=== PATIENT | female | born 1980 | race Caucasian/White ===

== ENCOUNTER → 2017-06-11 | Outpatient (CLI) | payer OTHER ==
--- NOTE | 2017-06-11 20:05 | XR ---
EXAM TYPE: LUMBAR SPINE X RAY SERIES COMPARISON: NONE HISTORY: Back pain TECHNIQUE: 4 views are submitted. FINDINGS: Alignment is anatomic. The pedicles are intact. The transverse processes are intact. There is no s pondylolysis or spondylolisthesis. Facet arthropathy L5-S1 bilaterally. There is degenerative disc d isease at levels L2-S1 with most marked findings at L5-S1. Mild hypertrophic changes anteriorly. Dege nerative disc disease and hypertrophic changes thoracolumbar junction. IMPRESSION: 1. Multilevel degenerative disc disease with most marked findings at L5-S1..
== END | disposition home or self-care (01) ==
LOC: RADXRMAIN 15:44
PROVIDERS: ATTEND Family Medicine
DX: M51.37 Other intervertebral disc degeneration, lumbosacral region (principal)
CPT/HCPCS: 72110

== ENCOUNTER 2017-11-26 13:41 | Day surgery (SDC) | payer OTHER ==
[2017-11-20 16:07] VITALS: BMI 24.1
[~2017-11-26 13:41] MED LIST: SODIUM CHLORIDE 0.9% 1,000 ML IV SCH
[2017-11-26 14:13] VITALS: PULSE 70; RESP 20; TEMP 97.9
[2017-11-26] MEDS ORDERED: IV FLUID CONTINUATION 450 ML IV ONE (14:30)
[2017-11-26 16:02] VITALS: BP 110/70
--- NOTE | 2017-11-26 18:11 | P.PCN ---
Preoperative Diagnosis: Indication for the procedure Recurrent presyncope and syncope Twelve-lead ECG shows sinus rhythm normal MA narrow QRS no delta waves no epsilon waves normal ST segments Tilt table test per protocol Baseline blood pressure 1904 mmHg Baseline heart rate 100 beats a minute Patient's heart rate and blood pressure remained stable throughout the procedure no symptoms noted The only time she was disease when she was tilted upright but without any change in heart rate and blood pressure Impression Normal heart rate and blood pressure response to upright tilting Normal twelve-lead ECG
== END 2017-11-26 16:00 | disposition home or self-care (01) ==
LOC: CATHEP 13:41
PROVIDERS: ATTEND Internal Medicine Clinical Cardiac Electrophysiology
DX: R55 Syncope and collapse (principal); Z82.49 Family history of ischemic heart disease and other diseases of the circulatory system; F17.210 Nicotine dependence, cigarettes, uncomplicated; Z88.1 Allergy status to other antibiotic agents; Z88.0 Allergy status to penicillin; Z88.2 Allergy status to sulfonamides; Z79.899 Other long term (current) drug therapy
CPT/HCPCS: 81025; 93660

== ENCOUNTER → 2018-03-11 | Day surgery (SDC) | payer OTHER ==
[2018-03-08 12:26] VITALS: BMI 26.6
[~2018-03-11] MED LIST changes: +ADENOSINE 3 MG/ML 4 ML VIAL IVP ONE; +NITROGLYCERIN SL TABS 0.4 MG TAB SUBLINGUAL ONE
[2018-03-11 07:13] VITALS: RESP 18; TEMP 97.6
[2018-03-11 09:51] VITALS: BP 124/68; PULSE 96
--- NOTE | 2018-03-11 12:05 | P.PCN ---
Preoperative Diagnosis: Diagnosis Recurrent presyncope and syncope Patient has had these symptoms since her teenage years States that Adderall has not worsened the symptoms Elevated blood pressures in the last few days prior to her delivery, when she was Prodrome includes a feeling of rash, warm, feeling sick to the stomach,, cold sweats and palpitations sometimes Prior to loss of consciousness her heart is pounding Baseline twelve-lead ECG shows sinus mechanism normal OR narrow QRS normal ST segments no delta waves no epsilon waves normal QT interval Normal precordial ST segments Tilt table test with pharmacologic challenge Baseline heart rate 90 beats a minute Baseline blood pressure 119/64 mmHg. Patient lay supine for 10 minutes for Baseline measurements and thereafter tilt table test was performed with pharmacologic challenge with sublingual nitroglycerin, later 12 mg of IV adenosine, and then subsequently Isuprel Tilt table test with sublingual nitroglycerin challenge 0.4 mg administered in the supine position and after waiting for 5 minutes patient was tilted upright at 90-70 Heart rate increased 218 beats a minute she felt heart racing blood pressure remained stable No symptoms that are very typical of her clinical scenario She was laid supine administered 12 mg IV bolus adenosine rapid push. She experienced sinus tachycardia up to 126 beats a minute. No AV block noted and she was tilted upright thereafter. Heart rate remained in the 90s blood pressure remained stable but she felt hot and clammy felt her heart was racing and she was dizzy and although her heart rate was not as high as when she was in nitroglycerin her symptoms were far more prominent she also felt overheated. No loss of consciousness. This reproduced her prodromal symptoms She was laid supine Isuprel was started wide open and then at 1 juan c. On Isuprel heart rate increased 160 beats a minute and later settled down to between 120 to 1:30 beats a minute. At that point she was tilted upright once again. This time she felt worse she felt heart nauseous clammy and felt her heart was pounding similar to what she would feel just before passing out. The sinus tachycardia was followed by dips in his systolic and diastolic blood pressure on 2 occasions that reproduced his symptoms but without loss of consciousness she felt clammy heart and nauseous Although she exhibited a neurocardiogenic phenomena, no loss of consciousness was noted She was laid supine at the end of procedure Isuprel was stopped Impression Evidence of neurocardiogenic phenomena without loss of consciousness but reproduction of prodromal symptoms. Drop in blood pressure followed the increase in heart rate, while on Isuprel Impression Neurocardiogenic phenomena with reproduction of clinical symptoms Plan TSH with reflex T4 Cortisol level random sent because during the nitroglycerin phase when she was tilted upright she was actually hypertensive In the last few days prior to delivery, when she was , her blood pressure was also noted to be high Serum metanephrines Serum 5HIAA levels Detailed discussion with the patient My clinical diagnosis remains unchanged after this test. It would be prudent to either cut back on the dose of Adderall or stop it completely the patient says that she cannot tolerate the decrease in the dose and definitely cannot tolerate not taking Adderall Increase fluid and salt intake Strength training of the lower extremity muscles and core body emphasized and recommended After 6 weeks of doing so then add Florinef 0.1 mg by mouth daily Follow-up with Dr. Ramos in 12-14 weeks Other options for treatment include Low-dose nadolol because her heart rates up persistently in the 90s Her resting heart rates are 90s to low 100s even in supine position Inappropriate sinus tachycardia is not my primary diagnosis but lowering her heart rate may help and a trial of Corlanor / Ivabradine may be considered to see if this mitigates her symptoms to see if she has a combination of inappropriate sinus tachycardia that triggers recurrent symptoms of vasovagal phenomena and vasovagal syncope Anesthesia: none Condition: stable
== END | disposition home or self-care (01) ==
LOC: CATHEP 06:43
PROVIDERS: ATTEND Internal Medicine Clinical Cardiac Electrophysiology
DX: R55 Syncope and collapse (principal); Z79.899 Other long term (current) drug therapy; Z82.49 Family history of ischemic heart disease and other diseases of the circulatory system; Z72.0 Tobacco use; Z88.1 Allergy status to other antibiotic agents; Z88.0 Allergy status to penicillin; Z88.2 Allergy status to sulfonamides
CPT/HCPCS: 93660; 83835; 84443; 82533; 83497; J0153

== ENCOUNTER → 2018-05-10 | Outpatient (CLI) | payer OTHER ==
--- NOTE | 2018-05-10 19:04 | CT ---
EXAMINATION TYPE: CT abdomen pelvis wo/w con DATE OF EXAM: 05/10/2018 COMPARISON: None INDICATION: RUQ PAIN DLP: 1076.8 mGycm, Automated exposure control for dose reduction was used. CONTRAST: 100 mL of Isovue 300. Study performed with Oral Contrast TECHNIQUE: Axial images were obtained from above the diaphragm to the pubic rami in the axial plane a t 5 mm thick sections. Reconstructed images are reviewed on the computer in the coronal plane. FINDINGS: Limited CT sections are obtained the lung bases. The lung bases are clear. CT ABDOMEN: Liver: Normal Spleen: Normal Pancreas: Normal Adrenal glands: The adrenal glands are normal. Gallbladder: Normal Kidneys: No masses are evident. No hydronephrosis is present. No cysts are present. There is a 0.6 cm calcification in the inferior pole left kidney without evidence of obstruction. Delayed images w ere obtained through the kidneys which remain unremarkable. Aorta: Vascular calcification is within the aorta. Inferior vena cava: Normal. CT PELVIS: Loops of bowel within the abdomen and pelvis are normal. There are loops of bowel which are incom pletely distended or lack oral contrast limiting their evaluation. There is a large fecal bolus at th e level the rectum. Appendix: Normal as visualized. Urinary bladder: Normal. Genitourinary structures: Uterus and adnexa appear within normal limits. IUD is within the uterus. Osseous structures: No suspicious lytic or sclerotic lesions. IMPRESSIONS: 1. Nonobstructing inferior pole left renal stone measuring 0.6 cm. 2. Large fecal bolus at the level the rectum. 3. No suspicious findings to account for right upper quadrant pain
== END | disposition home or self-care (01) ==
LOC: RADCTMAIN 13:47
PROVIDERS: ATTEND Family Medicine
DX: N20.0 Calculus of kidney (principal); R10.11 Right upper quadrant pain
CPT/HCPCS: 74178; Q9967

== ENCOUNTER → 2020-04-20 | Outpatient (CLI) | payer OTHER | END | disposition home or self-care (01) | LOC: SLEEP 13:35 | PROVIDERS: ATTEND Internal Medicine Critical Care Medicine | DX: Z53.9 Procedure and treatment not carried out, unspecified reason (principal) ==

== ENCOUNTER → 2024-03-05 | Outpatient (CLI) | payer OTHER ==
[2024-03-05 19:34] LABS: Chol/HDL Ratio 4.52 Ratio; VLDL Calculation 15.88 mg/dL (5.00-40.00)
[2024-03-05 19:35] LABS: ALT 15 U/L (8-44); AST 14 U/L (13-35); Albumin 4.5 g/dL (3.8-4.9); Albumin/Globulin Ratio 1.88 Ratio (1.60-3.17); Alkaline Phosphatase 81 U/L (41-126); BUN/Creat Ratio 14.11 Ratio (12.00-20.00); Blood Urea Nitrogen 12.7 mg/dL (9.0-27.0); Calcium 9.8 mg/dL (8.7-10.3); Carbon Dioxide 25.6 mmol/L (21.6-31.8); Chloride 103 mmol/L (96-109); Globulin 2.4 g/dL (1.6-3.3); Glucose 94 mg/dL (70-110); LDL Cholesterol,Calculated 148.4 mg/dL (0.0-131.0); Potassium 4.3 mmol/L (3.5-5.5); Sodium 140 mmol/L (135-145); T4, Free (Free Thyroxine) 1.39 ng/dL (0.80-1.80); Total Bilirubin 0.5 mg/dL (0.3-1.2); Total Protein 6.9 g/dL (6.2-8.2)
[2024-03-05 19:48] LABS: Basophils # (A) 0.08 X 10*3/uL (0.00-0.10); Basophils % (A) 0.8 %; Eosinophils # (A) 0.34 X 10*3/uL (0.04-0.35); Eosinophils % (A) 3.3 %; HCT 47.1 % (37.2-46.3); HGB 15.5 g/dL (12.0-15.0); Lymphocytes # (A) 2.28 X 10*3/uL (0.90-5.00); Lymphocytes % (A) 22.3 %; MCH 31.6 pg (27.0-32.0); MCHC 32.9 g/dL (32.0-37.0); MCV 95.9 FL (80.0-97.0); Mean Platelet Volume 9.9 FL (9.5-12.2); Monocytes # (A) 0.69 X 10*3/uL (0.20-1.00); Monocytes % (A) 6.7 %; NRBC Per 100 WBC 0 X 10*3/uL (0.00-0.01); Neutrophils # (A) 6.81 X 10*3/uL (1.80-7.70); Neutrophils % (A) 66.5 %; Platelet Count 334 X 10*3/uL (140-440); RBC 4.91 X 10*6/uL (4.10-5.20); RDW 12.2 % (11.5-14.5); WBC 10.24 X 10*3/uL (4.50-10.00)
== END | disposition home or self-care (01) ==
LOC: LABWHC1 13:06
PROVIDERS: ATTEND Family Medicine
CPT/HCPCS: 36415; 80053; 80061; 82306; 82375; 82533; 83036; 84439; 84443; 85025

== ENCOUNTER 2024-08-25 20:03 | Emergency (ER) | payer OTHER ==
[2024-08-25 20:09] VITALS: TEMP 98
--- NOTE | 2024-08-25 20:37 | ED ---
General Adult HPI - General Chief complaint: Urogenital Stated complaint: vomiting, abd pain Time Seen by Provider: 08/25/24 20:10 Source: patient, RN notes reviewed Mode of arrival: ambulatory Limitations: no limitations - History of Present Illness Initial comments: 43-year-old female presenting to the emergency department for complaint of left- sided flank pain, nausea that started approximately 2 hours prior to arrival. States that the pain initially started on the left front of her abdomen radiating into her back. She states she feels like she has a kidney stone this feels similar as she has had kidney stones in the past. She denies fevers, dy suria, hematuria, increased urinary frequency or urgency, diarrhea. Patient states that a few weeks ago she was noticing dark discoloration of urine however this is resolved. Denies previous urological procedures. - Related Data Home Medications Medication Instructions Recorded Confirmed Ketorolac [Toradol] 10 mg PO Q6H PRN 08/27/24 08/27/24 Lisdexamfetamine Dimesylate 70 mg PO DAILY 08/27/24 08/27/24 [Vyvanse] Allergies Allergy/AdvReac Type Severity Reaction Status Date / Time metronidazole [From Flagyl] Allergy Rash/Hives Verified 08/27/24 09:25 Penicillins Allergy Rash/Hives Verified 08/27/24 09:25 Sulfa (Sulfonamide Allergy Rash/Hives Verified 08/27/24 09:25 Antibiotics) sulfamethoxazole Allergy Rash/Hives Verified 08/27/24 09:25 [From Bactrim] trimethoprim [From Bactrim] Allergy Rash/Hives Verified 08/27/24 09:25 Review of Systems ROS Statement: Those systems with pertinent positive or pertinent negative responses have been documented in the HPI. ROS Other: All systems not noted in ROS Statement are negative. Past Medical History Past Medical History: No Reported History Additional Past Medical History / Comment(s): SYNCOPE, SEE DR VAUGHAN'S CARDIAC HISTORY AND PHYSICAL, History of Any Multi-Drug Resistant Organisms: None Reported Past Surgical History: Orthopedic Surgery Additional Past Surgical History / Comment(s): RIGHT ELBOW SURGERY, TILT TABLE Past Anesthesia/Blood Transfusion Reactions: Previous Problems w/ Anesthesia Additional Past Anesthesia/Blood Transfusion Reaction / Comment(s): " VERY LOW HEART RATE" DID NOT STAY OVER NIGHT NO ADMISSION Past Psychological History: ADD/ADHD, Anxiety Smoking Status: Current every day smoker Past Alcohol Use History: Occasional Past Drug Use History: None Reported - Past Family History Mother Family Medical History: No Reported History General Exam Limitations: no limitations General appearance: alert, in no apparent distress ENT exam: Present: normal exam, mucous membranes moist Respiratory exam: Present: normal lung sounds bilaterally. Absent: respiratory distress, wheezes, rales, rhonchi, stridor Cardiovascular Exam: Present: regular rate, normal rhythm, normal heart sounds. Absent: systolic murmur, diastolic murmur, rubs, gallop, clicks GI/Abdominal exam: Present: soft, tenderness (left lower), normal bowel sounds. Absent: distended, guarding, rebound, rigid Extremities exam: Present: normal inspection, full ROM, normal capillary refill. Absent: tenderness, pedal edema, joint swelling, calf tenderness Back exam: Present: tenderness, CVA tenderness (L). Absent: CVA tenderness (R) Course Vital Signs 08/25/24 08/25/24 08/25/24 20:05 20:53 23:27 Temperature 98.0 F Pulse Rate 69 70 79 Respiratory 17 18 18 Rate Blood Pressure 135/81 147/90 145/85 O2 Sat by Pulse 100 94 L 99 Oximetry Medical Decision Making - Medical Decision Making Was pt. sent in by a medical professional or institution ([facility]ucker, [employer], urgent care, hospital, or retirement...) When possible be specific @ -No Did you speak to anyone other than the patient for history (EMS, parent, family, police, friend...)? What history was obtained from this source @ -No Did you review nursing and triage notes (agree or disagree)? Why? @ -I reviewed and agree with nursing and triage notes Were old charts reviewed (outside hosp., previous admission, EMS record, old EKG, old radiological studies, urgent care reports/EKG's, retirement records)? Report findings @ -No old charts were reviewed Differential Diagnosis (chest pain, altered mental status, abdominal pain women, abdominal pain men, vaginal bleeding, weakness, fever, dyspnea, syncope, headache, dizziness, GI bleed, back pain, seizure, CVA, palpatations, mental health, musculoskeletal)? @ -Differential Abdominal Pain Women: Appendicitis, Cholecystitis, diverticulosis, ischemic bowel, pancreatitis, hepatitis, UTI, gastroenteritis, AAA, incarcerated hernia, bowel obstruction, constipation, inflammatory bowel, hepatitis, peptic ulcer disease, splenic infarction, perforated viscus, vulvitis, ovarian torsion, PID, kidney stone, placenta abruption, this is not meant to be an all-inclusive list EKG interpreted by me (3pts min.). @ -None X-rays interpreted by me (1pt min.). @ -None done CT interpreted by me (1pt min.). @ -CT of the abdomen pelvis without contrast reveals a mild left hydronephrosis and obstructing 10 x 5 mm thickness at ureteropelvic junction U/S interpreted by me (1pt. min.). @ -None done What testing was considered but not performed or refused? (CT, X-rays, U/S, labs)? Why? @ -None What meds were considered but not given or refused? Why? @ -None Did you discuss the management of the patient with other professionals (professionals i.e. , PA, [employer]IAN, lab, RT, psych nurse, long term care social worker, gizzard puller, teacher, vessel traffic officer, case management rn)? Give summary @ -Spoke with on-call urologist, Dr. Pollard, was recommended that if the patient's pain is well-controlled she is able to be discharged with stable condition with close follow-up tomorrow outpatient. Was smoking cessation discussed for >3mins.? @ -No Was critical care preformed (if so, how long)? @ -No Were there social determinants of health that impacted care today? How? (Homelessness, low income, unemployed, alcoholism, drug addiction, transportation, low edu. Level, literacy, decrease access to med. care, detention, rehab)? @ -No Was there de-escalation of care discussed even if they declined (Discuss DNR or withdrawal of care, Hospice)? DNR status @ -No What co-morbidities impacted this encounter? (DM, HTN, Smoking, COPD, CAD, Cancer, CVA, ARF, Chemo, Hep., AIDS, mental health diagnosis, sleep apnea, morbid obesity)? @ -None Was patient admitted / discharged? Hospital course, mention meds given and route, prescriptions, significant lab abnormalities, going to OR and other pertinent info. @ -Discharge. 43-year-old female presents emergency department with left flank pain. Patient's pain is reproducible on examination. She is provided with Dilaudid and Toradol in addition to Zofran. Laboratory testing is unremarkable. Urinalysis reveals white cells, moderate blood with minor sinus rates likely contamination. CT abdomen pelvis reveals a mild left hydronephrosis with obstructing 10 x 5 mm thickness at UPJ. Spoke with on-call urologist who states that if patient's pain is well-controlled she is able to follow-up outpatient. On evaluation patient that she is feeling well. She is provided with starter pack of Tylenol 3 and provided with urology follow-up. Return parameters discussed. Case discussed with Dr. bess Undiagnosed new problem with uncertain prognosis? @ -No Drug Therapy requiring intensive monitoring for toxicity (Heparin, Nitro, Insulin, Cardizem)? @ -No Were any procedures done? @ -No Diagnosis/symptom? @ -kidney stone Acute, or Chronic, or Acute on Chronic? @ -acute Uncomplicated (without systemic symptoms) or Complicated (systemic symptoms)? @ -uncomplicated Side effects of treatment? @ -No Exacerbation, Progression, or Severe Exacerbation? @ -No Poses a threat to life or bodily function? How? (Chest pain, USA, NM, pneumonia, PE, COPD, DKA, ARF, appy, cholecystitis, CVA, Diverticulitis, Homicidal, Suicidal, threat to staff... and all critical care pts) @ -No - Lab Data Result diagrams: 08/25/24 20:39 08/25/24 20:39 Lab Results 08/25/24 08/25/24 08/25/24 Range/Units 20:39 20:39 21:52 WBC 10.04 H (4.50-10.00) 10*3/uL RBC 4.65 (4.10-5.20) 10*6/uL Hgb 15.0 (12.0-15.0) g/dL Hct 43.2 (37.2-46.3) % MCV 92.9 (80.0-97.0) fL MCH 32.3 H (27.0-32.0) pg MCHC 34.7 (32.0-37.0) g/dL Plt Count 295 (140-440) 10*3/uL MPV 9.6 (9.5-12.2) fL Immature Gran % (Auto) 0.3 % Neutrophils % 70.9 % Lymphocytes % 20.0 % Monocytes % 5.3 % Eosinophils % 2.7 % Basophils % 0.8 % Immature Gran # 0.03 (0.00-0.04) 10*3/uL Neutrophils # 7.12 (1.80-7.70) 10*3/uL Lymphocytes # 2.01 (0.90-5.00) 10*3/uL Monocytes # 0.53 (0.20-1.00) 10*3/uL Eosinophils # 0.27 (0.04-0.35) 10*3/uL Basophils # 0.08 (0.00-0.10) 10*3/uL Sodium 135 L (137-145) mmol/L Potassium 3.7 (3.5-5.1) mmol/L Chloride 100 (98-107) mmol/L Carbon Dioxide 27 (22-30) mmol/L Anion Gap 8 mmol/L BUN 10 (7-17) mg/dL Creatinine 0.65 (0.52-1.04) mg/dL Est GFR (CKD-EPI)AfAm >90 (>60 ml/min/1.73 sqM) Est GFR (CKD-EPI)NonAf >90 (>60 ml/min/1.73 sqM) Glucose 99 (74-99) mg/dL Calcium 10.0 (8.4-10.2) mg/dL Total Bilirubin 0.7 (0.2-1.3) mg/dL AST 18 (14-36) U/L ALT 16 (4-34) U/L Alkaline Phosphatase 86 (38-126) U/L Total Protein 6.9 (6.3-8.2) g/dL Albumin 4.3 (3.5-5.0) g/dL Urine Color Yellow Urine Appearance Cloudy H (Clear) Urine pH 6.0 (5.0-8.0) Ur Specific Craig 1.021 (1.001-1.035) Urine Protein Trace H (Negative) Urine Glucose (UA) Negative (Negative) Urine Ketones Trace H (Negative) Urine Blood Moderate H (Negative) Urine Nitrite Negative (Negative) Urine Bilirubin Negative (Negative) Urine Urobilinogen <2.0 (<2.0) mg/dL Ur Leukocyte Esterase Moderate H (Negative) Urine RBC 114 H (0-5) /hpf Urine WBC 12 H (0-5) /hpf Ur Squamous Epith Cells 12 H (0-4) /hpf Urine Bacteria Moderate H (None) /hpf Urine Mucus Many H (None) /hpf Disposition Clinical Impression: Nephrolithiasis Disposition: HOME SELF-CARE Condition: Stable Instructions (If sedation given, give patient instructions): Kidney Stones (ED) Additional Instructions: Please return to the Emergency Department if symptoms worsen or any other concerns. Follow-up with provided urology referral tomorrow for further evaluation. Is patient prescribed a controlled substance at d/c from ED?: No Referrals: None,Stated [Primary Care Provider] - 1-2 days Dexter Pollard MD [STAFF PHYSICIAN] - 1-2 days Time of Disposition: 22:45
[2024-08-25] MEDS: ONDANSETRON 4 MG/2 ML VIAL IVP STA (20:47)
[2024-08-25] MEDS: HYDROmorphone 1 MG/ML 1 ML SYRINGE IVP STA ×2 (20:48→23:10)
[2024-08-25] MEDS: KETOROLAC 15 MG/ML 1 ML VIAL IVP STA (20:48)
[2024-08-25] MEDS: SODIUM CHLORIDE 0.9% 1,000 ML IV STA (20:50)
[2024-08-25 20:51] LABS: Basophils # (A) 0.08 10*3/uL (0.00-0.10); Basophils % (A) 0.8 %; Eosinophils # (A) 0.27 10*3/uL (0.04-0.35); Eosinophils % (A) 2.7 %; HCT 43.2 % (37.2-46.3); Lymphocytes # (A) 2.01 10*3/uL (0.90-5.00); MCH 32.3 pg (27.0-32.0); MCHC 34.7 g/dL (32.0-37.0); MCV 92.9 fL (80.0-97.0); Mean Platelet Volume 9.6 fL (9.5-12.2); Monocytes # (A) 0.53 10*3/uL (0.20-1.00); Monocytes % (A) 5.3 %; Neutrophils # (A) 7.12 10*3/uL (1.80-7.70); Neutrophils % (A) 70.9 %; Platelet Count 295 10*3/uL (140-440); RBC 4.65 10*6/uL (4.10-5.20); RDW 12.7 % (11.5-14.5); WBC 10.04 10*3/uL (4.50-10.00)
[2024-08-25 20:53] LABS: ALT 16 U/L (4-34); AST 18 U/L (14-36); African American GFR (CKD) >90 (>60 ml/min/1.73 sqM); Albumin 4.3 g/dL (3.5-5.0); Alkaline Phosphatase 86 U/L (38-126); Anion Gap 8 mmol/L; Blood Urea Nitrogen 10 mg/dL (7-17); Carbon Dioxide 27 mmol/L (22-30); Chloride 100 mmol/L (98-107); Glucose 99 mg/dL (74-99); Non-African American GFR(CKD) >90 (>60 ml/min/1.73 sqM); Potassium 3.7 mmol/L (3.5-5.1); Sodium 135 mmol/L (137-145); Total Bilirubin 0.7 mg/dL (0.2-1.3); Total Protein 6.9 g/dL (6.3-8.2)
[2024-08-25 20:54] VITALS: RESP 18
--- NOTE | 2024-08-25 21:39 | CT ---
EXAMINATION TYPE: CT abdomen pelvis wo con DATE OF EXAM: 08/25/2024 9:03 PM COMPARISON: CT abdomen pelvis most recent from 02/01/2023 CLINICAL INDICATION: Female, 43 years old with history of L flank/ab pain, hx kidney stones; L flank/ ab pain, hx kidney stones TECHNIQUE: Axial CT abdomen pelvis wo con;Sagittal and coronal reformats were created on a separate workstation. Contrast used: mL of , (none if empty) Oral contrast used: without Oral Contrast (none if empty) CT DLP: 635.7 mGycm, Automated exposure control for dose reduction was used. FINDINGS: LOWER CHEST: Unremarkable ABDOMEN LIVER: Unremarkable GALLBLADDER AND BILE DUCTS: Unremarkable. PANCREAS: Unremarkable. SPLEEN: Unremarkable. ADRENAL GLANDS: Unremarkable. KIDNEYS AND URETERS: Mild left hydronephrosis and obstructing 10 x 5 mm thickness at the ureteropelvi c junction. No additional left artery. No right renal calculi. No right renal hydronephrosis. PELVIS BLADDER: No evidence for wall thickening or mass given limitations of exam. REPRODUCTIVE: Intrauterine device seen within the endometrium. Left ovarian dominant follicle measuri ng up to 29 mm. ABDOMEN & PELVIS STOMACH AND BOWEL: No evidence of bowel obstruction. The appendix is normal. PERITONEUM/RETROPERITONEUM: No evidence of pneumoperitoneum or free fluid. VASCULATURE: No evidence of aortic aneurysm. MUSCULOSKELETAL: No acute osseous abnormalities. Moderate disc degeneration changes are present throu ghout the thoracolumbar spine. Large osteophytes posterior to T12-L1 with severe spinal canal stenosi s. LYMPH NODES: No gross evidence for lymphadenopathy. SOFT TISSUE/ABDOMINAL WALL: Unremarkable IMPRESSION: 1. Mild left hydronephrosis and obstructing 10 x 5 mm thickness at the ureteropelvic junction. 2. IUD in appropriate position. 3. Large osteophytes posterior to T12-L1 with severe spinal canal stenosis. Findings similar to 02/01. 4. Dominant left ovarian follicle measuring up to 29 mm. Similar to prior 02/01/2023 [facility], , 08/25/2024 9:36 PM
[2024-08-25 22:07] LABS: Appearance,Urine Cloudy (Clear); Bacteria,Urine Moderate /hpf; Bilirubin,Urine Negative (Negative); Blood,Urine Moderate (Negative); Color,Urine Yellow; Glucose,Urine (UA) Negative (Negative); Ketones,Urine Trace (Negative); Leukocyte Esterase,Urine Moderate (Negative); Mucus,Urine Many /hpf; Nitrite,Urine Negative (Negative); Protein,Urine Trace (Negative); RBC,Urine 114 /hpf (0-5); Specific Gravity,Urine 1.021 (1.001-1.035); Squamous Epithelial Cell,Urine 12 /hpf (0-4); Urobilinogen,Urine <2.0 mg/dL (<2.0); WBC,Urine 12 /hpf (0-5)
[2024-08-25] MEDS: ONDANSETRON 4 MG ODT STARTER PACK 2 TAB BTL PO STA (23:09)
[2024-08-25] MEDS: ACET/COD 300 MG/30 MG STARTER PACK 6 TAB BTL PO STA (23:09)
[2024-08-25 23:28] VITALS: BP 145/85; PULSE 79
--- NOTE | 2024-08-26 01:00 | XR ---
EXAM: XR Abdomen, 1 View CLINICAL HISTORY: XR Reason: kidney stone TECHNIQUE: Frontal supine view of the abdomen/pelvis. COMPARISON: CT scan from February 01, 2023 FINDINGS: Gastrointestinal tract: Unremarkable. No dilated bowel loops identified. Bones/joints: There is a smooth oval 9 mm calcific density projecting over the left transverse process of L5. The uterus is seen left lower pole kidney stone is no longer visible within the kidney. Mild degenerative changes throughout the lumbar spine. No acute fracture. IMPRESSION: There is a smooth oval 9 mm calcific density projecting over the left transverse process of L5. Consider mid left ureteral calculus.
== END 2024-08-25 23:28 | disposition home or self-care (01) ==
LOC: EC 20:03
DX: N13.2 Hydronephrosis with renal and ureteral calculous obstruction (principal); F17.200 Nicotine dependence, unspecified, uncomplicated; Z88.0 Allergy status to penicillin; Z88.1 Allergy status to other antibiotic agents; Z88.2 Allergy status to sulfonamides
CPT/HCPCS: 36415; 80053; 85025; 81001; 74018; 74176; 99284; 96374; 96375 ×2; 96376; 96361; J2405; J1171; J1885; S0119

== ENCOUNTER 2024-08-26 22:15 | Emergency (ER) | payer OTHER ==
--- NOTE | 2024-08-26 23:05 | ED ---
Back Pain HPI - General Chief Complaint: Back Pain/Injury Stated Complaint: Abd/Back Pain/NVD Time Seen by Provider: 08/26/24 22:31 Source: patient, RN notes reviewed Limitations: no limitations - History of Present Illness MD Complaint: back pain Onset/Timin -: days(s) Radiation: groin, flank Severity scale (1-10): 8 Quality: stabbing Consistency: intermittent - Related Data Home Medications Medication Instructions Recorded Confirmed Dextroamphetamine/Amphetamine 60 mg PO BID 03/09/16 03/11/18 [Adderall] Allergies Allergy/AdvReac Type Severity Reaction Status Date / Time metronidazole [From Flagyl] Allergy Rash/Hives Verified 08/26/24 22:19 Penicillins Allergy Rash/Hives Verified 08/26/24 22:19 Sulfa (Sulfonamide Allergy Rash/Hives Verified 08/26/24 22:19 Antibiotics) sulfamethoxazole Allergy Rash/Hives Verified 08/26/24 22:19 [From Bactrim] trimethoprim [From Bactrim] Allergy Rash/Hives Verified 08/26/24 22:19 Review of Systems ROS Statement: Those systems with pertinent positive or pertinent negative responses have been documented in the HPI. ROS Other: All systems not noted in ROS Statement are negative. Past Medical History Past Medical History: No Reported History Additional Past Medical History / Comment(s): SYNCOPE, SEE DR VAUGHAN'S CARDIAC HISTORY AND PHYSICAL, History of Any Multi-Drug Resistant Organisms: None Reported Past Surgical History: Orthopedic Surgery Additional Past Surgical History / Comment(s): RIGHT ELBOW SURGERY, TILT TABLE Past Anesthesia/Blood Transfusion Reactions: Previous Problems w/ Anesthesia Additional Past Anesthesia/Blood Transfusion Reaction / Comment(s): " VERY LOW HEART RATE" DID NOT STAY OVER NIGHT NO ADMISSION Past Psychological History: ADD/ADHD, Anxiety Smoking Status: Current every day smoker Past Alcohol Use History: Occasional Past Drug Use History: None Reported - Past Family History Mother Family Medical History: No Reported History General Exam Limitations: no limitations General appearance: alert, in distress Head exam: Present: atraumatic, normocephalic, normal inspection Eye exam: Present: normal appearance, PERRL, EOMI. Absent: scleral icterus, conjunctival injection, periorbital swelling ENT exam: Present: normal exam, mucous membranes moist Neck exam: Present: normal inspection. Absent: tenderness, meningismus, lymphadenopathy Respiratory exam: Present: normal lung sounds bilaterally. Absent: respiratory distress, wheezes, rales, rhonchi, stridor Cardiovascular Exam: Present: regular rate, normal rhythm, normal heart sounds. Absent: systolic murmur, diastolic murmur, rubs, gallop, clicks GI/Abdominal exam: Present: soft, tenderness (Positive LLQ and left flank tenderness without guarding), normal bowel sounds. Absent: distended, guarding, rebound, rigid Extremities exam: Present: normal inspection, full ROM, normal capillary refill. Absent: tenderness, pedal edema, joint swelling, calf tenderness Back exam: Present: tenderness (Left posterior flank tenderness). Absent: CVA tenderness (R), CVA tenderness (L) Neurological exam: Present: alert, oriented X3, CN II-XII intact Psychiatric exam: Present: normal affect, normal mood Skin exam: Present: warm, dry, intact, normal color. Absent: rash Course Vital Signs 08/26/24 22:16 Temperature 98.1 F Pulse Rate 84 Respiratory 18 Rate Blood Pressure 130/81 O2 Sat by Pulse 100 Oximetry Medical Decision Making - Medical Decision Making Was pt. sent in by a medical professional or institution (, PA, PIGS FEET FINISHER, urgent care, hospital, or residential...) When possible be specific @ -[No] Did you speak to anyone other than the patient for history (EMS, parent, family, police, friend...)? What history was obtained from this source @ -[No] Did you review nursing and triage notes (agree or disagree)? Why? @ -[I reviewed and agree with nursing and triage notes] Were old charts reviewed (outside hosp., previous admission, EMS record, old EKG, old radiological studies, urgent care reports/EKG's, residential records)? Report findings @ -Abdomen/pelvic CT from 08/25/2024 reviewed indicating large ureterolithiasis with hydronephrosis Differential Diagnosis (chest pain, altered mental status, abdominal pain women, abdominal pain men, vaginal bleeding, weakness, fever, dyspnea, syncope, headache, dizziness, GI bleed, back pain, seizure, CVA, palpatations, mental health, musculoskeletal)? @ -Differential Abdominal Pain Women: Appendicitis, Cholecystitis, diverticulosis, ischemic bowel, pancreatitis, hepatitis, UTI, gastroenteritis, AAA, incarcerated hernia, bowel obstruction, constipation, inflammatory bowel, hepatitis, peptic ulcer disease, splenic infarction, perforated viscus, vulvitis, ovarian torsion, PID, kidney stone, placenta abruption, this is not meant to be an all-inclusive list EKG interpreted by me (3pts min.). @ -Not done X-rays interpreted by me (1pt min.). @ -[None done] CT interpreted by me (1pt min.). @ -[None done] U/S interpreted by me (1pt. min.). @ -[None done] What testing was considered but not performed or refused? (CT, X-rays, U/S, labs)? Why? @ -[None] What meds were considered but not given or refused? Why? @ -[None] Did you discuss the management of the patient with other professionals (professionals i.e. , PA, PIGS FEET FINISHER, lab, RT, psych nurse, licensed master social worker, docket clerk, teacher, classification officer, case supervisor)? Give summary @ -[No] Was smoking cessation discussed for >3mins.? @ -[No] Was critical care preformed (if so, how long)? @ -[No] Were there social determinants of health that impacted care today? How? (Homelessness, low income, unemployed, alcoholism, drug addiction, transportation, low edu. Level, literacy, decrease access to med. care, alf, rehab)? @ -[No] Was there de-escalation of care discussed even if they declined (Discuss DNR or withdrawal of care, Hospice)? DNR status @ -[No] What co-morbidities impacted this encounter? (DM, HTN, Smoking, COPD, CAD, Cancer, CVA, ARF, Chemo, Hep., AIDS, mental health diagnosis, sleep apnea, morbid obesity)? @ -[None] Was patient admitted / discharged? Hospital course, mention meds given and route, prescriptions, significant lab abnormalities, going to OR and other pertinent info. @ -[hospital course] Undiagnosed new problem with uncertain prognosis? @ -[No] Drug Therapy requiring intensive monitoring for toxicity (Heparin, Nitro, Insulin, Cardizem)? @ -[No] Were any procedures done? @ -[No] Diagnosis/symptom? @ -Ureterolithiasis pain exacerbation Acute, or Chronic, or Acute on Chronic? @ -Acute Uncomplicated (without systemic symptoms) or Complicated (systemic symptoms)? @ -Uncomplicated Side effects of treatment? @ -[No] Exacerbation, Progression, or Severe Exacerbation? @ -Severe exacerbation Poses a threat to life or bodily function? How? (Chest pain, [place], PA, pneumonia, PE, COPD, DKA, ARF, appy, cholecystitis, CVA, Diverticulitis, Homicidal, S uicidal, threat to staff... and all critical care pts) @ -[No] - Lab Data Lab Results 08/26/24 08/26/24 Range/Units 23:27 23:27 Urine Color Yellow Urine Appearance Cloudy H (Clear) Urine pH 6.0 (5.0-8.0) Ur Specific [place] 1.029 (1.001-1.035) Urine Protein Negative (Negative) Urine Glucose (UA) Negative (Negative) Urine Ketones Negative (Negative) Urine Blood Negative (Negative) Urine Nitrite Negative (Negative) Urine Bilirubin Negative (Negative) Urine Urobilinogen <2.0 (<2.0) mg/dL Ur Leukocyte Esterase Negative (Negative) Urine RBC 2 (0-5) /hpf Urine WBC 2 (0-5) /hpf Ur Squamous Epith Cells 9 H (0-4) /hpf Calcium Oxalate Crystal Occasional H (None) /hpf Urine Bacteria Rare H (None) /hpf Urine Mucus Rare H (None) /hpf Urine HCG, Qual Not Detected (Not Detectd) Disposition Clinical Impression: Ureterolithiasis Disposition: HOME SELF-CARE Condition: Good Instructions (If sedation given, give patient instructions): Kidney Stones (ED) Additional Instructions: Increase oral rehydration. Alternate previously prescribed Toradol and Tylenol every 4 hours as needed for pain. Follow-up for surgery with Dr. Pollard on . Is patient prescribed a controlled substance at d/c from ED?: No Referrals: None,Stated [Primary Care Provider] - 1-2 days Dexter Pollard MD [STAFF PHYSICIAN] - 1-2 days Time of Disposition: 00:00
[2024-08-26] MEDS: KETOROLAC 15 MG/ML 1 ML VIAL IVP STA (23:25)
[2024-08-26] MEDS: SODIUM CHLORIDE 0.9% 1,000 ML IV STA (23:25)
[2024-08-26 23:42] LABS: Appearance,Urine Cloudy (Clear); Bacteria,Urine Rare /hpf; Bilirubin,Urine Negative (Negative); Blood,Urine Negative (Negative); Calcium Oxalate Crystals,Urine Occasional /hpf; Color,Urine Yellow; Glucose,Urine (UA) Negative (Negative); Ketones,Urine Negative (Negative); Leukocyte Esterase,Urine Negative (Negative); Mucus,Urine Rare /hpf; Nitrite,Urine Negative (Negative); Protein,Urine Negative (Negative); RBC,Urine 2 /hpf (0-5); Specific Gravity,Urine 1.029 (1.001-1.035); Squamous Epithelial Cell,Urine 9 /hpf (0-4); Urobilinogen,Urine <2.0 mg/dL (<2.0); WBC,Urine 2 /hpf (0-5)
[2024-08-27] MEDS: HYDROmorphone 1 MG/ML 1 ML SYRINGE IVP STA (00:06)
[2024-08-27 00:08] VITALS: BP 129/69; PULSE 78; RESP 17; TEMP 97.6
[2024-08-27] MEDS: ETODOLAC 400 MG TAB PO ONE (00:12)
== END 2024-08-27 00:13 | disposition home or self-care (01) ==
LOC: EC 22:15
DX: N20.1 Calculus of ureter (principal); F17.200 Nicotine dependence, unspecified, uncomplicated; Z88.0 Allergy status to penicillin; Z88.1 Allergy status to other antibiotic agents; Z88.2 Allergy status to sulfonamides; Z88.8 Allergy status to other drugs, medicaments and biological substances
CPT/HCPCS: 81001; 81025; 99284; 96374; 96361; J1885

== ENCOUNTER 2024-08-28 11:20 | Day surgery (SDC) | payer OTHER ==
--- NOTE | 2024-08-26 21:57 | P.GSHP ---
History of Present Illness H&P Date: 08/26/24 Chief Complaint: Left renal colic The patient is a 43-year-old white female who had an episode of kidney stones in 2021. She presents with a 2 to 3-month history of intermittent left lower back and abdominal pain, which has been severe at times. She presented to the ER in August 25, [address] scan, revealing mild left hydronephrosis due to a 5 x 10 mm left UPJ calculus. The calculus measured 9 mm on KUB x-ray. Her renal function is normal. - Gastrointestinal Gastrointestinal: Reports nausea, Reports vomiting - Genitourinary (Female) Genitourinary: Reports flank pain, Reports hematuria, Reports kidney stones Past Medical History Past Medical History: No Reported History Additional Past Medical History / Comment(s): SYNCOPE, SEE DR VAUGHAN'S CARDIAC HISTORY AND PHYSICAL, History of Any Multi-Drug Resistant Organisms: None Reported Past Surgical History: Orthopedic Surgery Additional Past Surgical History / Comment(s): RIGHT ELBOW SURGERY, TILT TABLE Past Anesthesia/Blood Transfusion Reactions: Previous Problems w/ Anesthesia Additional Past Anesthesia/Blood Transfusion Reaction / Comment(s): " VERY LOW HEART RATE" DID NOT STAY OVER NIGHT NO ADMISSION Past Psychological History: ADD/ADHD, Anxiety Smoking Status: Current every day smoker Past Alcohol Use History: Occasional Past Drug Use History: None Reported - Past Family History Mother Family Medical History: No Reported History Medications and Allergies Home Medications Medication Instructions Recorded Confirmed Type Dextroamphetamine/Amphetamine 60 mg PO BID 03/09/16 03/11/18 History [Adderall] Allergies Allergy/AdvReac Type Severity Reaction Status Date / Time metronidazole [From Flagyl] Allergy Rash/Hives Verified 08/25/24 20:09 Penicillins Allergy Rash/Hives Verified 08/25/24 20:09 Sulfa (Sulfonamide Allergy Rash/Hives Verified 08/25/24 20:09 Antibiotics) sulfamethoxazole Allergy Rash/Hives Verified 08/25/24 20:09 [From Bactrim] trimethoprim [From Bactrim] Allergy Rash/Hives Verified 08/25/24 20:09 Surgical - Exam - General well developed, well nourished, no distress - Respiratory normal respiratory effort - Abdomen Soft, non-distended, no mass. Left CVA tenderness noted. - Psychiatric oriented to time, oriented to person, oriented to place, speech is normal, memory intact Results - Imaging CT scan - abdomen: report reviewed, image reviewed Assessment and Plan (1) Calculus of ureter Status: Acute Code(s): N20.1 - CALCULUS OF URETER SNOMED Code(s): 27390537 Plan: I had a lengthy discussion with the patient reviewing the pros and cons of extracorporal shockwave lithotripsy (ESWL) versus ureteroscopy with laser lithotripsy. She has elected to undergo the latter and comes for this reason. The procedure has been reviewed in detail with her. She was made aware of potential risks, which include anesthesia, bleeding, infection, and ureteral injury. The likely need for a ureteral stent postoperatively was was discussed in detail. It was also explained to her that if the calculus is impacted, laser lithotripsy may be aborted and performed as a secondary procedure, following stent placement.
[2024-08-27 10:00] VITALS: BMI 28.3
--- NOTE | 2024-08-28 11:40 | XR ---
EXAMINATION TYPE: XR KUB DATE OF EXAM: 08/28/2024 11:35 AM COMPARISON: 08/25/2024 CLINICAL INDICATION: Female, 43 years old with history of calculus, TECHNIQUE: XR KUB view(s) obtained. FINDINGS: There is a nonspecific bowel gas pattern present. No dilated loops of bowel are evident. Some fecal d ebris is in the distal:. Psoas margins are normal. No organomegaly is present. There is 1.1 cm opacification of the L2-3 level on the left may be a proximal ureteral stone. IUD is noted in the pelvis. IMPRESSION: 1. Stable left 1.1 cm paraspinal calcification may be a ureteral stone. [facility], , 08/28/2024 11:37 AM
[2024-08-28] MEDS: IV FLUID CONTINUATION 1,000 ML IV ONE (13:17)
[2024-08-28] MEDS: LACTATED RINGERS 1,000 ML IV SCH (13:39)
[2024-08-28] MEDS: ONDANSETRON 4 MG/2 ML VIAL IVP STA (13:39)
[2024-08-28] MEDS: DEXAMETHASONE SOD PHOSPHATE 4 MG/ML 1 ML VIAL IVP STA (13:39)
[2024-08-28] MEDS ORDERED: PHENYLEPHRINE 10 MG/ML VIAL ONE (14:34)
[2024-08-28] MEDS ORDERED: fentaNYL (PF) 50 MCG/ML 2 ML AMP ONE (14:34)
[2024-08-28] MEDS ORDERED: PROPOFOL 10 MG/ML 20 ML VIAL IV ONE (14:34)
[2024-08-28] MEDS ORDERED: LIDOCAINE 1% INJ 10MG/ML (20 ML MDV) ONE (14:34)
[2024-08-28] MEDS ORDERED: LIDOCAINE 4% LTA KIT (4 ML) TOPICAL ONE (14:34)
[2024-08-28] MEDS ORDERED: KETOROLAC 30 MG/ML 1 ML VIAL ONE (14:34)
[2024-08-28] MEDS ORDERED: SUCCINYLCHOLINE CHLORIDE 200 MG/10 ML VIAL IV ONE (14:34)
[2024-08-28] MEDS ORDERED: MIDAZOLAM 2 MG/2 ML VIAL ONE (14:34)
[2024-08-28] MEDS: ceFAZolin 2 GM in DEXTROSE 5% IN WATER 50 ML IVPB PRN (14:39)
[2024-08-28] MEDS: IOPAMIDOL-370 100ML BTL MISCELLANE ONE (16:09)
--- NOTE | 2024-08-28 16:17 | P.OP ---
Date of Procedure: 08/28/24 Preoperative Diagnosis: Left ureteral calculus Postoperative Diagnosis: Same Procedure(s) Performed: Cystoscopy, left ureteroscopy with Holmium laser lithotripsy and stone basketing, left ureteral stent insertion Anesthesia: EDUARDO Surgeon: Dexter Pollard Estimated Blood Loss (ml): 10 IV fluids (ml): 600 Pathology: other (Left ureteral calculus fragment, sent for chemical analysis) Condition: stable Disposition: PACU Indications for Procedure: The patient is a 43-year-old white female who had an episode of kidney stones in 2021. She presents with a 2 to 3-month history of intermittent left lower back and abdominal pain, which has been severe at times. She presented to the ER in August 25, [address] scan, revealing mild left hydronephrosis due to a 5 x 10 mm left UPJ calculus. The calculus measured 9 mm on KUB x-ray. Her renal function is normal. Operative Findings: Large left proximal ureteral calculus, fragmented completely. Left mid-ureteral stricture distal to the calculus, requiring balloon dilation. Description of Procedure: The patient was taken to the operating room and placed in the dorsolithotomy position, with legs supported in Oniel stirrups. The external genitalia was prepped and draped sterilely. The 30 lens was used to introduce the 21-Z[place]an Scruggs cystoscopic sheath through the urethra and into the bladder under direct vision. The bladder was examined in its entirety. Both ureteral orifices were normal anatomic location and configuration. No tumors or foreign bodies were seen. A 0.038 inch Glidewire was passed through the cystoscope. The left ureteral orifice was cannulated, and the Glidewire was advanced up to the renal pelvis. The cystoscope was removed, and an 11/13-Zimbabwean ureteral access catheter was passed over the wire, up to the mid ureter. The Scruggs Cobra flexible ureteroscope was then passed through the ureteral access catheter sheath and advanced under direct vision. The ureter was narrowed distal to the stone, and the ureteroscope could not be passed beyond this point. Therefore, the ureteroscope was removed and the Glidewire was passed through the ureteral access catheter sheath and up to the left renal pelvis. An 18 [place]an, 4 cm balloon dilating catheter was then passed over the wire and was used to dilate the narrowed portion of the ureter. Once this was completed, ureteroscopy was performed and the ureteroscope was advanced under direct vision up to the left renal pelvis, as the manipulation caused the calculus to be dislodged and refluxed into the renal pelvis. The 272 micron Holmium laser probe was passed through the ureteroscope, and lithotripsy was performed. Initially a dusting mode was utilized, but the calculus was very dense, undoubtedly composed of calcium oxalate monohydrate. The calculus then began to break into pieces, and these pieces refluxed into an upper pole calyx where lithotripsy was completed using a combination of dusting, fragmenting, and popcorning until there were no residual calculus fragments exceeding the size of the laser fiber tip. A 1.9 [place]an nitinol basket was used at times to grasp the calculus while lithotripsy was being performed, when the calculus was within the renal pelvis. Additionally, a 2 mm calculus fragment was removed and sent for chemical analysis. Once fragmentation was completed, pullout ureteroscopy showed no evidence of ureteral trauma. The Glidewire was passed through the ureteroscope, which was removed along with the ureteral access catheter sheath. The Glidewire was then backloaded into the cystoscope, which was passed into the bladder. A 24 cm, 4.8 [place]an double-J ureteral stent was placed over the wire. Proper stent positioning was verified fluoroscopically and endoscopically. The bladder was emptied and the cystoscope removed. The patient tolerated the procedure well and was taken to the recovery room in stable condition. Hotel [employer] Themes Report: Procedure Acuity: Urgent Stone Size and Location: 5 x 10 mm, left proximal ureter Ureteral Dilation: Balloon Dilation Ureteral Access Sheath Used: Yes Stone Sent for Analysis: Yes All Stones/Fragments Were Removed with a Basket: No Complications: No Preoperative Antibiotics Given: Yes Stent Placed: Yes If Stent Placed, Was String Left Attached: No If Stent Placed, When is it to be Removed: 2 weeks Discharge Medications: Toradol, tamsulosin, tolterodine
--- NOTE | 2024-08-28 16:17 | FL ---
EXAMINATION TYPE: FL guidance operating room Intraoperative/procedural fluoroscopic services were pro vided. CLINICAL INDICATION:Female, 43 years old with history of LEFT UPJ CALCULUS; , [facility] FINDINGS: Fluoroscopic images demonstrating left ureteral stent placement for left UPJ calculus. No radiographi c evidence for complication. Total fluoroscopy time is 29.5 seconds. DAP: 3.1718 Gycm2 Please see the operative/procedural note for further details. [facility], , 08/28/2024 4:14 PM
[2024-08-28 17:06] VITALS: RESP 14
[2024-08-28 17:46] VITALS: BP 127/70; PULSE 80
== END 2024-08-28 18:00 | disposition home or self-care (01) ==
LOC: OR 11:20
PROVIDERS: ATTEND Urology
DX: N13.2 Hydronephrosis with renal and ureteral calculous obstruction (principal); N13.1 Hydronephrosis with ureteral stricture, not elsewhere classified; K21.9 Gastro-esophageal reflux disease without esophagitis; F90.9 Attention-deficit hyperactivity disorder, unspecified type; F41.9 Anxiety disorder, unspecified; Z91.89 Other specified personal risk factors, not elsewhere classified; F17.200 Nicotine dependence, unspecified, uncomplicated; Z79.899 Other long term (current) drug therapy; Z87.442 Personal history of urinary calculi; Z88.8 Allergy status to other drugs, medicaments and biological substances; Z88.0 Allergy status to penicillin; Z88.2 Allergy status to sulfonamides; Z88.1 Allergy status to other antibiotic agents
CPT/HCPCS: 52356; 82365; 74018; J1100; J0690; J2405; Q9967; 81025

== ENCOUNTER → 2024-10-29 | Outpatient (CLI) | payer OTHER ==
--- NOTE | 2024-10-30 08:36 | CT ---
EXAMINATION TYPE: CT abdomen pelvis wo con DATE OF EXAM: 10/29/2024 9:52 AM COMPARISON: 08/25/2024 CLINICAL INDICATION: Female, 43 years old with history of R10.9 UNSPECIFIED ABDOMINAL PAIN; Lt flank pain post renal stone removal TECHNIQUE: CT of the abdomen and pelvis without contrast. Coronal and sagittal reconstructions perfor med. Oral contrast used: without Oral Contrast CT DLP: 656.3 mGycm, Automated exposure control for dose reduction was used. FINDINGS: LOWER CHEST: Unremarkable ABDOMEN LIVER: Unremarkable GALLBLADDER AND BILE DUCTS: Unremarkable. PANCREAS: Unremarkable. SPLEEN: Unremarkable. ADRENAL GLANDS: Unremarkable. KIDNEYS AND URETERS: Previous left-sided hydronephrosis has resolved. Previous proximal left ureteral stone has resolved. There is a 5 mm nonobstructive left renal stone and 3-4 punctate tiny stones lin suring up to 3 mm in a left calyceal system now, axial image 55 and 56. PELVIS BLADDER: Partially distended. REPRODUCTIVE: Uterus is anteverted with IUD properly situated. There is rounded soft tissue prominenc e measuring 5.6 cm wide in the region of the cervix which may be normal for the patient. Correlate wi th findings on routine Pap smear. Both ovaries are visualized. No abnormal fluid collection in the pe lvis ABDOMEN & PELVIS STOMACH AND BOWEL: No evidence of bowel obstruction. Normal appendix. Mild stool burden. No pericolon ic inflammatory change. PERITONEUM/RETROPERITONEUM: No evidence of pneumoperitoneum or free fluid. VASCULATURE: No evidence of aortic aneurysm. MUSCULOSKELETAL: Moderate degenerative change throughout the spine. Prominent disc osteophyte complex es are present, largest at T12-L1 possibly contributing to a severe focal spinal canal stenosis. Smal ler disc osteophyte complexes at L2-L3 and L3-L4 may contribute to moderate spinal canal stenosis. LYMPH NODES: No gross evidence for lymphadenopathy. SOFT TISSUE/ABDOMINAL WALL: Unremarkable IMPRESSION: 1. The previous proximal left ureteral stone and hydronephrosis is no longer seen. However, there ar e 3-4 punctate stones measuring up to 3 mm, probably postsurgical stone debris, located within a left calyceal system. Additional 5 mm nonobstructive left renal stone. 2. Rounded soft tissue prominence in the region of the cervix may be normal for the patient. Correlat e with findings are routine Pap smear. 3. See degenerative changes in the lumbar spine mentioned above. Large disc osteophyte complex at T12 -L1 may contribute to focal severe spinal canal stenosis. [facility], , 10/30/2024 8:33 AM
== END | disposition home or self-care (01) ==
LOC: RADCTMAIN 09:31
PROVIDERS: ATTEND Urology
DX: N20.0 Calculus of kidney (principal); M47.816 Spondylosis without myelopathy or radiculopathy, lumbar region
CPT/HCPCS: 74176